=== PATIENT | female | born 1970 | race Caucasian/White ===

== ENCOUNTER → 2017-11-19 | Outpatient (CLI) | payer BC ==
[~2017-11-19] MED LIST: ACET-1966 PO; ASCO-182 PO; ATOR40TA24 PO; CEPH500T7 PO; DOCU-416 PO; EMPA25TA PO; IBUP-56 PO; IBUP800T37 PO; LEVO75TA73 PO; METF-420 PO; OXYC-373 PO; OXYC-865 PO; SPIR25TA78 PO
--- NOTE | 2017-11-21 10:18 | RADIOLOGY IMAGING REPORT ---
FACILITY: [facility] [place] PATIENT NAME: JOSE LUONG : [id number] MR: [id number] V: [id number] EXAM DATE: [id number] ORDERING PHYSICIAN: STELLA ELIZABETH TECHNOLOGIST: Candice Spence PROCEDURE:LEFT DIGITAL DIAGNOSTIC MAMMOGRAM WITH CAD ASSISTED INTERPRETATION & 3D TOMOSYNTHESIS COMPARISON:Prior mammograms 05/29/17, 05/16/17, 12/30/14. INDICATIONS:6 MO F/U FINDINGS: A small to moderate amount of fibroglandular tissue is seen throughout the Left breast. A small cluster of round calcifications in the upper portion of the Left breast on the Left MLO view appear to be just posterior to mid nipple line on the Left CC view. These appear unchanged. A 6 month follow-up bilateral mammogram is recommended at which time the patient will be due for her annual mammogram. DIAGNOSTIC CATEGORY 3--PROBABLY BENIGN FINDING. RECOMMENDATIONS: SIX MONTH FOLLOW-UP DIAGNOSTIC MAMMOGRAM: BILATERAL BREASTS. IMPRESSION: BIRADS 3: Probably benign finding A 6 month follow-up bilateral mammogram is recommended at which time the patient will be due for her annual mammogram. Dictated by: Emily Philippe M.D. on 11/19/2017 at 11:43 Transcribed by: COLLETTE on 11/19/2017 at 13:23 Approved by: Emily Philippe M.D. on 11/21/2017 at 10:17 [facility]
== END ==
LOC: MAMO 01:03
PROVIDERS: ATTEND Obstetrics & Gynecology
DX: R92.1 Mammographic calcification found on diagnostic imaging of breast (principal)
CPT/HCPCS: 77065

== ENCOUNTER → 2018-06-12 | Outpatient (CLI) | payer BC ==
[~2018-06-12] MED LIST changes: +ATOR40TA69 PO; +CHOL10005 PO; +FLU60SYR36 IM; +GLUC1TAB13 PO; -METF-420 PO; +METF-452 PO; -SPIR25TA78 PO; +SPIR25TA80 PO; +SPIR50TA33 PO; +TRIA15OI20 TP; +[UNRECOGNIZED DRUG - CODE] PO
--- NOTE | 2018-06-12 14:09 | RADIOLOGY IMAGING REPORT ---
FACILITY: [facility] PATIENT NAME: JOSE LUONG : [id number] MR: [id number] V: [id number] EXAM DATE: [id number] ORDERING PHYSICIAN: STELLA ELIZABETH TECHNOLOGIST: Ankita Cifuentes PROCEDURE:BILATERAL DIAGNOSTIC DIGITAL MAMMOGRAM WITH CAD ASSISTED INTERPRETATION & 3D TOMOSYNTHESIS VIEWS OBTAINED: Bilateral 2D full field CC & MLO & corresponding 3D tomography, Left breast full field 2D & 3D tomography. COMPARISON:11/19/17, 05/29/17, 05/16/17, 12/30/14 INDICATIONS:6 MO F/U/Follow up Left breast asymmetries. TISSUE DENSITY: Heterogeneously dense which may obscure small masses. FINDINGS: Left superior breast asymmetries have not changed. There is no mammographic finding suspicious for malignancy in either breast. DIAGNOSTIC CATEGORY 2--BENIGN FINDING. RECOMMENDATIONS: ROUTINE ANNUAL MAMMOGRAM AND CLINICAL EVALUATION. IMPRESSION: BIRADS 2: Benign finding. Resume bilateral screening mammography in 12 months. Dictated by: Maral Aldana M.D. on 06/12/2018 at 12:12 Transcribed by: MICHAEL on 06/12/2018 at 13:39 Approved by: Maral Aldana M.D. on 06/12/2018 at 14:08 [facility]
== END ==
LOC: MAMO 04:03
PROVIDERS: ATTEND Obstetrics & Gynecology
DX: R92.8 Other abnormal and inconclusive findings on diagnostic imaging of breast (principal)
CPT/HCPCS: 77062; 77066